=== PATIENT | male | born 1985 | race Caucasian/White ===

== ENCOUNTER 2024-12-08 18:52 | Emergency (ER) | payer OTHER ==
[~2024-12-08] VITALS: Ht 180.3 cm; Wt 85.3 kg
[2024-12-08 19:20] VITALS: BP 150/87; PULSE 67; RESP 20; TEMP 98.7; O2SAT 100
--- NOTE | 2024-12-08 21:20 | DVH ---
CLINICAL INDICATION: Injury/laceration TECHNIQUE: 3 radiographic views of the right 2nd toe were obtained. Comparison: None FINDINGS/IMPRESSION: Minimally displaced fracture distal tuft left 2nd toe The visualized joint space is well maintained. The alignment is anatomical. There is no radiopaque foreign body.
[2024-12-08] MEDS ORDERED: IBUP-1456 PO (21:49)
[2024-12-08] MEDS ORDERED: CLIN1CAP70 PO (21:49)
--- NOTE | 2024-12-08 21:51 | ED.PDOC ---
HPI Comments 39-year-old male presents to ER with complaints of laceration to right 2nd toe x1 day. Patient reports that an approximately 15 lb piece of metal fell and hit him on his right 2nd toe while he was wearing flip-flops at 6:30 p.m. prior to arrival to ER and sustained laceration to right 2nd toe at that time. He reports 7/10 pain localized to right 2nd toe without radiation. Denies use of medications for current symptoms and states he is unsure when his last tetanus shot was. Patient presents to ER ambulatory on arrival, favoring left leg on ambulation and states he does have numbness to right 2nd toe. Denies any further symptoms/complaints Chief Complaint: Laceration Time Seen by MD: 19:21 Primary Care Provider: MEKHI Reviewed Notes: Nurses Notes, Medications, Allergies Allergies: Coded Allergies: Penicillins (Verified Allergy, Unknown, 12/08/24) Home Meds Active Scripts Clindamycin Hcl (Clindamycin Hcl) 300 Mg Cap, 1 CAP PO TID for 7 Days, #21 CAP 0 Refills Prov:MIKE OLSEN 12/08/24 Ibuprofen (Ibuprofen) 800 Mg Tab, 1 TAB PO TID PRN, #30 TAB 0 Refills Prov:MIKE OLSEN 12/08/24 Information Source: Patient Mode of Arrival: Ambulatory Complexity: Simple Laceration Length (cm): 1 Past Medical History PAST MEDICAL HISTORY: Denies Surgical History: Denies all surgeries Family History Family History: Unknown Social History Smoker: Non-Smoker Alcohol: Denies ETOH Use Drugs: Denies Drug Use Lives In: Home Constitutional: denies: chills, diaphoresis, fatigue, fever, malaise, sweats, weakness, others EENTM: denies: blurred vision, double vision, ear bleeding, ear discharge, ear drainage, ear pain, ear ringing, eye pain, eye redness, hearing loss, mouth pain, mouth swelling, nasal discharge, nose bleeding, nose congestion, nose pain, photophobia, tearing, throat pain, throat swelling, voice changes, others Respiratory: denies: cough, hemoptysis, orthopnea, SOB at rest, shortness of breath, SOB with excertion, stridor, wheezing, others Cardiovascular: denies: chest pain, dizzy spells, diaphoresis, Dyspnea on exertion, edema, irregular heart beat, left arm pain, lightheadedness, palpit ations, PND, syncope, others Gastrointestinal: denies: abdomen distended, abdominal pain, blood streaked b owels, constipated, diarrhea, dysphagia, difficulty swallowing, hematemesis, melena, nausea, poor appetite, poor fluid intake, rectal bleeding, rectal pain, vomiting, others Genitourinary: denies: burning, dysuria, flank pain, frequency, hematuria, incontinence, penile discharge, penile sore, pain, testicle pain, testicle swelling, urgency, others Neurological: denies: dizziness, fainting, headache, left sided numbness, left sided weakness, numbness, paresthesia, pre-existing deficit, right sided numbness, right sided weakness, seizure, speech problems, tingling, tremors, weakness, others Musculoskeletal: reports: others ( STATED IN HPI) Integumetry: reports: others ( STATED IN HPI) Allergic/Immunocompromised: denies: Difficulty Healing, Frequent Infections, Hives, Itching, others Hematologic/Lymphatic: denies: anemia, blood clots, easy bleeding, easy bruising, swollen glands, others Endocrine: denies: excessive hunger, excessive sweating, excessive thirst, excessive urination, flushing, intolerance to cold, intolerance to heat, unexplained weight gain, unexplained weight loss, others Psychiatric: denies: anxiety, bipolar disorder, depression, hopeless, panic disorder, schizophrenia, sleepless, suicidal, others Physical Exam General Appearance: Mild Distress (DUE TO PAIN LOCALIZED TO RIGHT 2ND TOE) HEENT: PERRL/EOMI Neck: Full Range of Motion, Non-Tender, Normal Respiratory: Chest Non-Tender, Lungs Clear, No Accessory Muscle Use, No Respiratory Distress, Normal Breath Sounds Cardiovascular: No Murmur, No Gallop, Regular Rate/Rhythm Breast Exam: Deferred Gastrointestinal: NOT DONE Genitalia: Deferred Pelvic: Deferred Rectal: Deferred Extremities: Normal capillary refill, Normal range of motion Neurologic: Alert, director of instructional technology II-XII nml as Tested, No Motor Deficits, No Sensory Deficits Cerebellar Function: Normal Reflexes: Normal Skin: Dry, Warm, Other (1 CM LACERATION SURROUNDING NAILBED OF RIGHT 2ND TOE NOTED WITH SMALL ASSOCIATED SUBUNGUAL HEMATOMA NOTED. SLIGHT TTP/SW ELLING/ERYTHEMA LOCALIZED TO WOUND EDGES. MILD BLEEDING TO SITE OF LACERATION ALSO PRESENT. NO NAILBED LACERATION/FURTHER SKIN CHANGES NOTED. PATIENT FAVORS LEFT LEG ON AMBULATION DUE TO PAIN LOCALIZED TO RIGHT 2ND TOE) Peripheral Pulses: 2+ dorsalis pedis (R), 2+ dorsalis pedis (L) Lymphatic: No Adenopathy Was a procedure done? Was a procedure done?: Yes Sedation Sedation?: No Laceration Repair : Location RIGHT 2ND TOE Length 1 CM Anesthetic: Lidocaine (1%) Laceration Repair Prep: Saline (AND PEROXIDE), by Irrigation (WITHOUT ANY SIGNS OF FOREIGN BODY) Laceration Repair Wound Comple: epidermis/dermis repair Laceration Repair: Number of sutures (ONE PLACED), Size (4-0), Nylon, Simple, Non-adherent gauze Informed consent obtained: Yes Risks, benefits, and alternati: Yes Differential diagnosis Generic Laceration: Retained Foriegn Body, Neurovascular Injury, Avulsion, Amputation Differential Diagnosis: Other (DISLOCATION) X-Ray, Labs, Meds, VS Vital Signs Date Time Temp Pulse Resp B/P (MAP) Pulse Ox O2 Delivery O2 Flow Rate FiO2 12/08/24 19:20 98.7 67 20 150/87 (108) 100 98.7 12/08/24 19:20 98.6 67 20 150/87 (108) 100 98.6 12/08/24 19:20 Room Air Current Medications Medications (Trade) Dose Ordered Sig/Malka Route Start Time Stop Time Status Last Admin Ketorolac Tromethamine (Toradol Injection) 30 mg ONCE ONCE IV 12/08/24 21:45 12/08/24 21:46 DC 12/08/24 23:05 Cefazolin Sodium 50 ml @ 100 mls/hr ONCE ONCE IV 12/08/24 21:45 12/08/24 22:14 DC 12/08/24 23:04 Cefazolin Sodium 50 ml @ 100 mls/hr ONCE ONCE IV 12/08/24 21:45 12/08/24 22:14 DC 12/08/24 23:04 Diphtheria/ Tetanus/Acell Pertussis (Boostrix T-Dap) 0.5 ml ONCE ONCE IM 12/08/24 21:45 12/08/24 21:46 DC 12/08/24 22:23 PATIENT: KAILEY SAUNDERS ACCT: [id number] UNIT: [id number] : 1985 LOC: ER ROOM / BED: / AGE / SEX: 39 / M ADM STATUS: REG ER SERVICE 19 ORDERING PHYSICIAN: MIKE OLSEN PROCEDURE(s): RTOE2 - R 2ND TOE XRAY REASON: Injury/laceration ORDER NUMBER(s): [id number], ACCESSION NUMBER(s): [id number] CLINICAL INDICATION: Injury/laceration TECHNIQUE: 3 radiographic views of the right 2nd toe were obtained. Comparison: None FINDINGS/IMPRESSION: Minimally displaced fracture distal tuft left 2nd toe The visualized joint space is well maintained. The alignment is anatomical. There is no radiopaque foreign body. ATED BY: JOSE HONEYCUTT Jr., DO DICTATED DATE/TIME: 12/08/242116 SIGNED BY: JOSE HONEYCUTT Jr., SIGNED DATE/TIME: 12/08/242116 CC: RIGHT 2ND TOE X-RAY REVIEWED HEP-LOCK IV ORDERED ANCEF 2 MG IV ORDERED TORADOL 30 MG IV ORDERED TDAP 0.5 ML IM ORDERED PATIENT NEUROVASCULARLY INTACT WOUND CLEANING PERFORMED AT BEDSIDE WOUND CARE/CLEANING DISCUSSED AND ADVISED KIRK TAPE AND HARD SOLE SHOE APPLIED ADVISED ON REST/NO STRENUOUS ACTIVITY, ELEVATION AND ALTERNATE ICE ON/OFF NEEDED FOR PAIN ADVISED TO F/U IN 2 DAYS FOR WOUND CHECK ADVISED TO F/U IN 10-14 DAYS FOR REMOVAL OF SUTURE ADVISED TO FOLLOW UP WITH PCP AND FEEDER CATCHER TOBACCO IN 1-2 DAYS PATIENT VERBALIZED UNDERSTANDING AND AGREEABLE WITH CURRENT PLAN OF CARE ADVISED TO RETURN TO ER IMMEDIATELY IF SYMPTOMS WORSEN Images Reviewed?: Images reviewed and evaluated by me Time of 1ST Reevaluation: 21:20 Reevaluation 1ST: N/A Patient Education/Counseling: Diagnosis, Treatment, Prognosis, Need For Follow Up Family Education/Counseling: No Family Present Departure 1 Departure Time of Disposition: 21:42 Impression: Primary Impression: Laceration of toe of right foot Qualified Codes: S91.214A - Laceration without foreign body of right lesser toe(s) with damage to nail, initial encounter Disposition: HOME / SELF CARE / HOMELESS Condition: Stable e-Prescriptions Clindamycin Hcl (Clindamycin Hcl) 300 Mg Cap 1 CAP PO TID for 7 Days, #21 CAP 0 Refills Prov: MIKE OLSEN 12/08/24 Ibuprofen (Ibuprofen) 800 Mg Tab 1 TAB PO TID PRN, #30 TAB 0 Refills Prov: MIKE OLSEN 12/08/24 Discharged With: Friend Critical Care Note Critical Care Time?: No Stability Stability form required: No Heart Score Heart Score: Heart Score Response (Comments) Value History N/A 0 EKG N/A 0 Age N/A 0 Risk Factors N/A 0 Troponin N/A 0 Total 0 MIKE OLSEN Dec 08, 2024 21:51
[2024-12-08] MEDS: TETANUS-DIPTH-ACEL PERTUSSIS 0.5ML SYR Tdap IM ONE (22:23)
[2024-12-08] MEDS: ceFAZolin 1GM/50ML 50 ML IV ONE ×2 (23:04)
[2024-12-08] MEDS: KETOROLAC TROMETH 30 MG/ML 1ML VIAL IV ONE (23:05)
== END 2024-12-09 00:20 | disposition home or self-care (01) ==
LOC: ER 18:52
DX: S91.114A Laceration without foreign body of right lesser toe(s) without damage to nail, initial encounter (principal); Z88.0 Allergy status to penicillin; W20.8XXA Other cause of strike by thrown, projected or falling object, initial encounter; Y93.89 Activity, other specified; Y92.89 Other specified places as the place of occurrence of the external cause; Y99.8 Other external cause status
CPT/HCPCS: 12001; 73660; 90471; 90715; 96365; 96375; 99284; J0690; J1885

== ENCOUNTER → 2025-01-14 | Outpatient (CLI) | payer OTHER ==
[~2025-01-14] MED LIST: CLIN1CAP70 PO; IBUP-1456 PO
[2025-01-14 16:45] LABS: Basophils # (auto) 0.1 10 ^3/uL (0-0.2); Basophils % (auto) 0.7 % (0.0-2.0); Eosinophils # (auto) 0.1 10 ^3/uL (0-0.8); Hematocrit 44.1 % (41.0-53.0); Hemoglobin 15.1 g/dL (13.5-17.5); Lymphocytes % (auto) 25.7 % (10.0-50.0); Mean Corpuscular Hemoglobin 32.3 pg (28.0-32.0); Mean Corpuscular Hgb Conc. 34.2 g/dL (32.0-36.0); Mean Corpuscular Volume 94.2 fL (80.0-100.0); Monocytes # (auto) 0.9 10 ^3/uL (0-1.3); Neutrophils # (auto) 4.8 10 ^3/uL (1.6-8.6); Neutrophils % (auto) 61.6 % (37.0-80.0); Nucleated Red Blood Cells % 0.1 %; Platelet Count (auto) 260 10^3/uL (140-450); Red Blood Cells 4.68 10^6/uL (4.5-5.90); White Blood Cell 7.8 10^3/uL (4.4-10.8)
== END | disposition home or self-care (01) ==
LOC: LAB 15:45
PROVIDERS: ATTEND Internal Medicine
DX: K92.1 Melena (principal); R19.7 Diarrhea, unspecified; R10.9 Unspecified abdominal pain
CPT/HCPCS: 36415; 83013; 85025

== ENCOUNTER 2025-01-19 14:32 | Outpatient (CLI) | payer OTHER | END 2025-01-19 17:00 | disposition home or self-care (01) | LOC: LAB 14:32 | PROVIDERS: ATTEND Internal Medicine | DX: K92.1 Melena (principal); R19.7 Diarrhea, unspecified; R10.9 Unspecified abdominal pain | CPT/HCPCS: 82270; 82272; 87177; 87493 ==